=== PATIENT | female | born 1940 | race Caucasian/White ===

== ENCOUNTER 2017-04-23 17:28 | Emergency (ER) | payer BC, MEDICARE ==
[~2017-04-23] VITALS: Ht 167.6 cm; Wt 66.2 kg
[2017-04-23] MEDS: CEPHALEXIN 250 MG CAPSULE PO ONE (19:40)
[2017-04-23 19:48] LABS: BASO # 0.1 x10^3/uL (0.0-0.2); BASO % 1 % (0-3); EOS # 0.3 x10^3/uL (0.0-0.7); EOS % 4 % (0-3); HEMATOCRIT 34.1 % (36.0-47.0); HEMOGLOBIN 11.2 g/dL (12.0-15.5); LYMPH % 14 % (24-48); MEAN CORPUSCULAR HEMOGLOBIN 30 pg (25-35); MEAN CORPUSCULAR HGB CONC 33 g/dL (31-37); MEAN CORPUSCULAR VOLUME 91 fL (79-100); MONO # 0.6 x10^3/uL (0.0-1.1); MONO % 9 % (0-9); NEUT # 5.2 x10^3uL (1.8-7.7); NEUT % 73 % (31-73); PLATELET COUNT 382 x10^3/uL (140-400); RED BLOOD COUNT 3.77 x10^6/uL (3.50-5.40); RED CELL DISTRIBUTION WIDTH 17.9 % (11.5-14.5); WHITE BLOOD COUNT 7.2 x10^3/uL (4.0-11.0)
[2017-04-23 19:56] LABS: ALBUMIN 3.4 g/dL (3.4-5.0); ALBUMIN/GLOBULIN RATIO 0.9 (1.0-1.7); CALCIUM 8.8 mg/dL (8.5-10.1); CREATININE 1.8 mg/dL (0.6-1.0); GFR 27.4; TOTAL BILIRUBIN 0.5 mg/dL (0.2-1.0); TOTAL PROTEIN 7.1 g/dL (6.4-8.2)
[2017-04-23] MEDS ORDERED: CEPH-264 PO (20:12)
--- NOTE | 2017-04-23 20:12 | PHYS DOC ---
Adult General Chief Complaint Chief Complaint: POST-OP PROBLEM HPI HPI Patient is a 76 year old female who presents with postoperative wound infection. 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 She had good healing postoperatively & goes to dialysis MWF including today. She reports over the past 2 days she noticed redness, swelling, warmth at the distal portion of her incision, possibly with some scant yellow drainage. She denies fevers/chills, nausea, vomiting. She had severe numbness & decreased mobility to left hand prior to the surgery & this has gradually been improving, no marked change with onset of infection. Vascular surgeon is Dr. Vang. Review of Systems Review of Systems Constitutional: Denies fever or chills HENT: Denies nasal congestion or sore throat Respiratory: Denies cough or shortness of breath Cardiovascular: Denies chest pain or edema GI: Denies abdominal pain, nausea, vomiting, or diarrhea Musculoskeletal: Denies back pain or joint pain Integument: Reports erythema/warmth/swelling over incision Neurologic: Denies headache, focal weakness or sensory changes All other systems were reviewed and found to be within normal limits, except as documented in this note. Current Medications Current Medications Current Medications Medications (Trade) Dose Ordered Sig/Justin Start Time Stop Time Status Last Admin Dose Admin Cephalexin HCl (Keflex) 500 mg 1X ONCE 04/23/17 19:30 04/23/17 19:31 DC 04/23/17 19:40 500 MG Allergies Allergies Allergies Coded Allergies Type Severity Reaction Last Updated Verified iodine Allergy Intermediate skin rash 04/23/17 Yes ketorolac Allergy Intermediate 04/23/17 Yes trimethoprim Allergy Intermediate rash 04/23/17 Yes Sulfa (Sulfonamide Antibiotics) Allergy Unknown 04/23/17 Yes latex Allergy Unknown 04/23/17 Yes morphine Allergy Unknown 04/23/17 Yes quinine Allergy Unknown 04/23/17 Yes Uncoded Allergies Type Severity Reaction Last Updated Verified tape Allergy Intermediate rash 04/23/17 Physical Exam Physical Exam Constitutional: Well developed, well nourished, no acute distress, non-toxic appearance. HENT: Normocephalic, atraumatic, bilateral external ears normal, oropharynx moist, nose normal. Eyes: conjunctiva normal, no discharge. Neck: supple, no stridor. Cardiovascular: RRR, no murmurs, no edema. Lungs & Thorax: LCTAB, no wheezing, no respiratory distress. Abdomen: soft, nontender, nondistended. Skin: erythema/warmth/swelling as below to LUE Back: No tenderness. Extremities: left upper extremity upper arm with AV fistula, incision extends just distal to AC, distally there is approx 6 cm area of erythema/warmth/ swelling with central induration, no fluctuance, no drainage at this time. no streaking. radial pulse is 2+, decreased sensation to light touch to the entire hand, able to make a fist & "okay" sign but with difficulty, which is baseline for patient. Neurologic: Alert and oriented X 3, no focal deficits noted. Psychologic: Affect normal, judgement normal, mood normal. Current Patient Data Lab Results Laboratory Tests Test 04/23/17 19:15 White Blood Count 7.2 x10^3/uL (4.0-11.0) Red Blood Count 3.77 x10^6/uL (3.50-5.40) Hemoglobin 11.2 g/dL (12.0-15.5) L Hematocrit 34.1 % (36.0-47.0) L Mean Corpuscular Volume 91 fL (79-100) Mean Corpuscular Hemoglobin 30 pg (25-35) Mean Corpuscular Hemoglobin Concent 33 g/dL (31-37) Red Cell Distribution Width 17.9 % (11.5-14.5) H Platelet Count 382 x10^3/uL (140-400) Neutrophils (%) (Auto) 73 % (31-73) Lymphocytes (%) (Auto) 14 % (24-48) L Monocytes (%) (Auto) 9 % (0-9) Eosinophils (%) (Auto) 4 % (0-3) H Basophils (%) (Auto) 1 % (0-3) Neutrophils # (Auto) 5.2 x10^3uL (1.8-7.7) Lymphocytes # (Auto) 1.0 x10^3/uL (1.0-4.8) Monocytes # (Auto) 0.6 x10^3/uL (0.0-1.1) Eosinophils # (Auto) 0.3 x10^3/uL (0.0-0.7) Basophils # (Auto) 0.1 x10^3/uL (0.0-0.2) Sodium Level 142 mmol/L (136-145) Potassium Level 4.0 mmol/L (3.5-5.1) Chloride Level 98 mmol/L (98-107) Carbon Dioxide Level 35 mmol/L (21-32) H Anion Gap 9 (6-14) Blood Urea Nitrogen 21 mg/dL (7-20) H Creatinine 1.8 mg/dL (0.6-1.0) H Estimated GFR (Cockcroft-Gault) 27.4 BUN/Creatinine Ratio 12 (6-20) Glucose Level 140 mg/dL (70-99) H Calcium Level 8.8 mg/dL (8.5-10.1) Total Bilirubin 0.5 mg/dL (0.2-1.0) Aspartate Amino Transferase (AST) 24 U/L (15-37) Alanine Aminotransferase (ALT) 27 U/L (14-59) Alkaline Phosphatase 157 U/L (46-116) H Total Protein 7.1 g/dL (6.4-8.2) Albumin 3.4 g/dL (3.4-5.0) Albumin/Globulin Ratio 0.9 (1.0-1.7) L EKG EKG [] Radiology/Procedures Radiology/Procedures [] Course & Med Decision Making Course & Med Decision Making Pertinent Labs and Imaging studies reviewed. (See chart for details) The patient presents with postoperative wound infection. Well appearing, afebrile, normal vitals other than hypertension. Obtained labs. Discussed with Dr. Fraire conventional underwriter for vascular surgery, who recommends outpatient management with keflex 500 mg QID, follow up tomorrow morning with Dr. Vang in the vascular clinic. Patient agrees with plan of care. She is instructed to call in the morning for an appointment. Come back for high fever, spreading erythema/warmth/swelling, uncontrolled vomiting, any otherwise worsening condition. Discharged home in stable condition. [] Dragon Disclaimer Dragon Disclaimer This electronic medical record was generated, in whole or in part, using a voice recognition dictation system. Departure Departure: Impression: Primary Impression: Postoperative infection Additional Impressions: Cellulitis End stage renal disease Disposition: HOME, SELF-CARE Condition: STABLE Referrals: DARI HINES MD (PCP) Patient Instructions: Cellulitis, [id number] Additional Instructions: You were seen in the emergency department today for infection over your operative site. We consulted with the vascular surgeon and they would like you to take the prescribed antibiotic. Please call Dr. Vang's clinic as soon as they open tomorrow morning to schedule an appointment. If you tell them you were seen in the ER tonight, they should be able to see you tomorrow morning. You should not have to wait several days or weeks. Return to the emergency department for high fever, spreading redness/warmth/swelling, uncontrolled vomiting, any otherwise worsening condition. Scripts Cephalexin (KEFLEX) 500 Mg Capsule 1 CAP PO QID for 7 Days, #28 CAP Prov: BONY BROOKE MD 04/23/17 Problem Qualifiers Primary Impression: Postoperative infection Encounter type: initial encounter Qualified Codes: T81.4XXA - Infection following a procedure, initial encounter Additional Impressions: Cellulitis Site of cellulitis: extremity Site of cellulitis of extremity: upper extremity Laterality: left Qualified Codes: L03.114 - Cellulitis of left upper limb BONY BROOKE MD Apr 23, 2017 20:12
[2017-04-23 20:25] VITALS: BP 202/67
== END 2017-04-23 20:25 | disposition home or self-care (01) ==
LOC: ER 17:28
DX: T82.7XXA Infection and inflammatory reaction due to other cardiac and vascular devices, implants and grafts, initial encounter (principal); L03.114 Cellulitis of left upper limb; N18.6 End stage renal disease; Z99.2 Dependence on renal dialysis; Z88.5 Allergy status to narcotic agent; Z88.2 Allergy status to sulfonamides; Z88.8 Allergy status to other drugs, medicaments and biological substances; Z88.1 Allergy status to other antibiotic agents; Z91.041 Radiographic dye allergy status; Z91.040 Latex allergy status
CPT/HCPCS: 36415; 80053; 85025; 99284